=== PATIENT | female | born 1975 | race Caucasian/White ===

== ENCOUNTER 2017-04-22 22:30 | Emergency (ER) | payer SELFPAY ==
[~2017-04-22] VITALS: Ht 157.5 cm; Wt 81.0 kg
[~2017-04-22 22:30] MED LIST: CEPH-443; SULF1TAB23; [UNRECOGNIZED DRUG - CODE]
[2017-04-22 22:34] VITALS: Ht 157.5 cm; Wt 81.0 kg
[2017-04-22] MEDS ORDERED: ONDANSETRON (ODT) 4 MG TAB ODT STA (23:40)
[2017-04-23] MEDS ORDERED: MECLIZINE 12.5 MG TAB PO ONE
[2017-04-23 00:14] LABS: BASOPHIL # 0.1 10^3/ul (0.0-0.1); BASOPHILS % 0.6 % (0.0-2.0); EOSINOPHILS # 0.4 10^3/ul (0.0-0.5); HEMATOCRIT 41.6 % (37.0-47.0); HEMOGLOBIN 13.5 g/dl (12.0-16.0); LYMPHOCYTES # 1.3 10^3/ul (0.8-2.9); LYMPHOCYTES % 13.6 % (15.0-51.0); MEAN CORPUSCULAR HEMOGLOBIN 30.3 pg (29.0-33.0); MEAN CORPUSCULAR HGB CONC 32.5 g/dl (32.0-37.0); MEAN CORPUSCULAR VOLUME 93.3 fl (82.0-101.0); MEAN PLATELET VOLUME 9.7 fl (7.4-10.4); MONOCYTE # 0.4 10^3/ul (0.3-0.9); MONOCYTES % 4.7 % (0.0-11.0); NEUTROPHIL # 7.3 10^3/ul (1.6-7.5); NEUTROPHILS % 76.9 % (39.0-77.0); PLATELET COUNT 318 10^3/UL (140-415); RED BLOOD COUNT 4.46 10^6/ul (4.20-5.40); RED CELL DISTRIBUTION WIDTH 12.6 % (11.5-14.5); WHITE BLOOD COUNT 9.4 10^3/ul (4.8-10.8)
[2017-04-23 00:38] LABS: ALBUMIN 4.4 g/dl (3.3-4.9); ALBUMIN/GLOBULIN RATIO 1.18; BILIRUBIN,INDIRECT 0.2 mg/dl (0-1.1); BILIRUBIN,TOTAL 0.2 mg/dl (0.2-1.3); CREATININE 0.89 mg/dl (0.44-1.00); POTASSIUM 4.3 mmol/L (3.5-5.1); TOTAL PROTEIN 8.1 g/dl (6.1-8.1)
--- NOTE | 2017-04-23 01:00 | RADRPT ---
PROCEDURE: CT Brain without contrast. CLINICAL INDICATION: Headache, dizziness TECHNIQUE: A CT of the brain was performed utilizing axial imaging from the skull base through the vertex without IV contrast. Multiplanar reformatted images were made. Images were reviewed on a [employer] workstation. The CTDIvol is 45.01 mGy and the DLP is 720.23 mGycm. One or more the following dose reduction techniques were utilized: Automated exposure control, adjus tment of the mA and / or kV according to patient's size, or use of iterative reconstruction techniqu e. DICOM images are available. COMPARISON: None FINDINGS: There is no intracranial hemorrhage, mass effect, or midline shift. No extra-axial fluid collection is seen. The ventricles and sulci are normal in size and configuration. The density of the brain is normal, and the suggs white matter differentiation appears well-preserved. No skull fracture seen. Likely 1.2 cm retention cyst containing proteinaceous fluid in left maxillary sinus. IMPRESSION: 1. No evidence of acute intracranial pathology. 2. The brain is normal in appearance. RPTAT: HJES .Darrel Mckee MD, MD Date Time Electronically viewed and signed by .Darrel Mckee MD, on 04/23/2017 01:00 .S/
[2017-04-23 01:52] LABS: ADD UMIC YES; UR ASCORBIC ACID NEGATIVE (NEGATIVE); UR BILIRUBIN (Dip) NEGATIVE (NEGATIVE); UR BLOOD (Dip) 1+ mg/dL (NEGATIVE); UR CLARITY SLIGHTLY CLOUDY (CLEAR); UR COLOR YELLOW (YELLOW); UR GLUCOSE (Dip) NEGATIVE (NEGATIVE); UR KETONES (Dip) NEGATIVE (NEGATIVE); UR LEUKOCYTE ESTERASE (Dip) NEGATIVE Leu/ul (NEGATIVE); UR NITRITE (Dip) NEGATIVE (NEGATIVE); UR RBC 5 /HPF (0-5); UR SPECIFIC GRAVITY (Dip) 1.019 (1.003-1.030); UR SQUAMOUS EPITHELIAL CELL FEW /HPF (FEW); UR TOTAL PROTEIN (Dip) NEGATIVE (NEGATIVE); UR UROBILINOGEN (Dip) NEGATIVE (NEGATIVE)
--- NOTE | 2017-04-23 02:08 | ERD ---
ER Documentation Chief Complaint Chief Complaint MULTIPLE EPISODES OF N/V X 12 HRS, +DIZZINESS, AFEBRILE HPI This a 41-year-old female who presents to the emergency department today complaining of dizziness and nausea and vomiting that comes and goes. Patient states that she has had a hard time sleeping because when she closes her eyes she feels dizzy. States she is having some heart palpitations. Denies any dysuria, fevers or chills, URI symptoms. Denies any headaches, blurred vision. ROS All systems reviewed and are negative except as per history of present illness. Medications Home Meds Active Scripts Meclizine Hcl* (Antivert*) 12.5 Mg Tab, 25 MG PO Q6H Y for DIZZINESS, #20 TAB Prov:JOHANNA HUANG PA-C 04/23/17 Ondansetron Hcl* (Zofran*) 4 Mg Tablet, 4 MG PO Q6H for NAUSEA AND/OR VOMITING, #30 TAB Prov:JOHANNA HUANG PA-C 04/23/17 Reported Medications Hydrocodone Bit/Acetaminophen (Hydrocodone-Apap 7.5-750 Tab) 1 Tab Tablet 12/05/10 Trimethoprim/Sulfamethoxazole* (Bactrim* SS) 1 Tab Tab 12/05/10 Cephalexin* (Keflex*) 500 Mg Capsule 12/05/10 Allergies Allergies: Coded Allergies: No Known Drug Allergies (Verified Allergy, Mild, 12/03/10) PMhx/Soc Medical and Surgical Hx: pt denies Medical Hx History of Surgery: Yes ( & L) SIDED BREAST LUMPECTOMY) Anesthesia Reaction: No Hx Neurological Disorder: No Hx Respiratory Disorders: No Hx Cardiac Disorders: No Hx Psychiatric Problems: No Hx Miscellaneous Medical Probl: No Hx Alcohol Use: No Hx Substance Use: No Hx Tobacco Use: No Smoking Status: Never smoker Physical Exam Vitals Vital Signs Date Time Temp Pulse Resp B/P Pulse Ox O2 Delivery O2 Flow Rate FiO2 04/22/17 22:34 98.7 85 20 118/73 99 Physical Exam Const: NAD Head: Atraumatic Eyes: Normal Conjunctiva. PERRLA, EOM intact ENT: Normal External Ears, Nose and Mouth. Neck: Full range of motion..~ No meningismus. Resp: Clear to auscultation bilaterally Cardio: Regular rate and rhythm, no murmurs Abd: Soft, non tender, non distended. Normal bowel sounds Skin: No petechiae or rashes Back: No midline or flank tenderness Ext: No cyanosis, or edema Neur: Awake and alert. Cranial nerves II through XII intact. No gait ataxia. Psych: Normal Mood and Affect Result Diagram: 04/22/17 2357 04/22/17 2353 Results 24 hrs Laboratory Tests Test 04/22/17 23:53 04/23/17 00:33 White Blood Count 9.410^3/ul Red Blood Count 4.4610^6/ul Hemoglobin 13.5g/dl Hematocrit 41.6% Mean Corpuscular Volume 93.3fl Mean Corpuscular Hemoglobin 30.3pg Mean Corpuscular Hemoglobin Concent 32.5g/dl Red Cell Distribution Width 12.6% Platelet Count 65064^3/UL Mean Platelet Volume 9.7fl Neutrophils % 76.9% Lymphocytes % 13.6% Monocytes % 4.7% Eosinophils % 4.0% Basophils % 0.6% Nucleated Red Blood Cells % 0.0/100WBC Neutrophils # 7.310^3/ul Lymphocytes # 1.310^3/ul Monocytes # 0.410^3/ul Eosinophils # 0.410^3/ul Basophils # 0.110^3/ul Nucleated Red Blood Cells # 0.010^3/ul Sodium Level 143mmol/L Potassium Level 4.3mmol/L Chloride Level 106mmol/L Carbon Dioxide Level 26mmol/L Anion Gap 15 Blood Urea Nitrogen 16mg/dl Creatinine 0.89mg/dl Glucose Level 131mg/dl Calcium Level 10.0mg/dl Total Bilirubin 0.2mg/dl Direct Bilirubin 0.00mg/dl Indirect Bilirubin 0.2mg/dl Aspartate Amino Transf (AST/SGOT) 18IU/L Alanine Aminotransferase (ALT/SGPT) 32IU/L Alkaline Phosphatase 63IU/L Total Protein 8.1g/dl Albumin 4.4g/dl Globulin 3.70g/dl Albumin/Globulin Ratio 1.18 Urine Color YELLOW Urine Clarity SLIGHTLY CLOUDY Urine pH 6.0 Urine Specific [place] 1.019 Urine Ketones NEGATIVEmg/dL Urine Nitrite NEGATIVEmg/dL Urine Bilirubin NEGATIVEmg/dL Urine Urobilinogen NEGATIVEmg/dL Urine Leukocyte Esterase NEGATIVELeu/ul Urine Microscopic RBC 5/HPF Urine Microscopic WBC 1/HPF Urine Squamous Epithelial Cells FEW/HPF Urine Hemoglobin 1+mg/dL Urine Glucose NEGATIVEmg/dL Urine Total Protein NEGATIVEmg/dl Current Medications Medications (Trade) Dose Ordered Sig/Edmond Route PRN Reason Start Time Stop Time Status Last Admin Dose Admin Meclizine HCl (Antivert) 25 mg ONCE ONCE PO 04/23/17 00:00 04/23/17 00:01 DC 04/23/17 00:19 Ondansetron HCl (Zofran Odt) 4 mg ONCE STAT ODT 04/22/17 23:40 04/22/17 23:42 DC 04/23/17 00:19 IAGNOSTIC IMAGING REPORT Patient: DIEGO RUANO : 1975 Age: 41 Sex: F MR #: [id number] DOS: 04/23/17 0000 Ordering MD: JOHANNA HUANG PA-C Location: [facility] Room/Bed: PROCEDURE: CT Brain without contrast. CLINICAL INDICATION: Headache, dizziness TECHNIQUE: A CT of the brain was performed utilizing axial imaging from the skull base through the vertex without IV contrast. Multiplanar reformatted images were made. Images were reviewed on a PACS workstation. The CTDIvol is 45.01 mGy and the DLP is 720.23 mGycm. One or more the following dose reduction techniques were utilized: Automated exposure control, adjustment of the mA and / or kV according to patient's size, or use of iterative reconstruction technique. DICOM images are available. COMPARISON: None FINDINGS: There is no intracranial hemorrhage, mass effect, or midline shift. No extra- axial fluid collection is seen. The ventricles and sulci are normal in size and configuration. The density of the brain is normal, and the suggs white matter differentiation appears well-preserved. No skull fracture seen. Likely 1.2 cm retention cyst containing proteinaceous fluid in left maxillary sinus. IMPRESSION: 1. No evidence of acute intracranial pathology. 2. The brain is normal in appearance. RPTAT: HJES .Darrel Mckee MD, MD Date Time Electronically viewed and signed by .Darrel Mckee MD, on 04/23/2017 01:00 .S/ CC: JOHANNA HUANG PA-C Procedures/[facility] This a 41-year-old female who presents the emergency department today complaining of intermittant dizziness and nausea and vomiting and heart palpitations for the past day. Patient's intake report stated that she had pelvic pain. Patient denied pain in her pelvis or headache or other pain symptoms. The patient's age and complaints I did obtain laboratory workup, EKG and a head CT. EKG read and interpreted by Dr. Yost rate [address] elevation. No QT prolongation. Normal sinus rhythm. Low suspicion for acute GA, PE, pericarditis. Laboratory workup shows no elevated white blood cell count. She is not anemic. Platelets are within normal limits. Electrolytes are within normal limits. Glucose is within normal limits. Liver enzymes are within normal limits. UA is negative for infection. test is negative Head CT noncontrast shows no intracranial abnormality, mass-effect or midline shift. There is likely a retention cyst in the left maxillary sinus. Low suspicion for acute hemorrhage, mass, abscess, meningitis Patient has no focal neurologic deficit. She has no gait ataxia. The remainder of her physical exam is benign. Her laboratory workup is negative. Symptoms at this time is consistent with dizziness and nausea and vomiting. Patient is not actively vomiting. Patient has dizziness of uncertain etiology however low suspicion for anemia, severe electrolyte abnormality, cardiac abnormality for sepsis, severe acute bacterial infection as a cause. She is afebrile and otherwise well appearing. Patient's dizziness may be related to positional vertigo however patient has no nystagmus on physical exam. Patient was given meclizine and Zofran here in the emergency department and symptoms improved. She is given a prescription for meclizine and Zofran for home. At this time the patient is stable for discharge and outpatient management. Patient should follow up with their PCP in the next 1-2 days. They may return to the emergency department sooner for any persistent or worsening of symptoms. Patient understood and agreed with the plan. Departure Diagnosis: Primary Impression: Dizziness Additional Impression: Nausea & vomiting Vomiting type: unspecified Vomiting Intractability: non-intractable Qualified Code: R11.2 - Non-intractable vomiting with nausea, unspecified vomiting type Condition: JOHANNA Crespo PA-C Apr 23, 2017 02:08
[2017-04-23] MEDS ORDERED: ONDA4TAB8 PO (02:14)
[2017-04-23] MEDS ORDERED: MECL12.574 PO (02:15)
== END 2017-04-23 02:24 | disposition home or self-care (01) ==
LOC: FTE 22:30
DX: R42 Dizziness and giddiness (principal); R11.2 Nausea with vomiting, unspecified
CPT/HCPCS: 70450; 80053; 81001; 85025; 93005